=== PATIENT | female | born 1990 | race Caucasian/White ===

== ENCOUNTER 2017-08-25 10:06 | Emergency (ER) | payer SELFPAY ==
[~2017-08-25] VITALS: Ht 162.6 cm; Wt 65.0 kg
[~2017-08-25 10:06] MED LIST: Dilaudid PO; Levothroid,Synthroid PO; Motrin PO; NATALCARE RX1 TABLE1 PO; Natalcare Rx,Pramile PO; ORTHO TRI-CY1 TABLE1 PO; Percocet 5/325,Endoc PO; SYNTHROID125 MCG PO; Tums,OsCal PO; ~No Medications
[2017-08-25] MEDS ORDERED: AUGMENTIN875 MG PO (12:59)
[2017-08-25 13:20] VITALS: BP 128/80
== END 2017-08-25 13:20 | disposition home or self-care (01) ==
LOC: EME 10:06
DX: O99.511 Diseases of the respiratory system complicating pregnancy, first trimester (principal); H66.92 Otitis media, unspecified, left ear; J06.9 Acute upper respiratory infection, unspecified; Z3A.01 Less than 8 weeks gestation of pregnancy; E03.9 Hypothyroidism, unspecified
CPT/HCPCS: 99281; 99284

== ENCOUNTER 2017-10-25 14:43 | Inpatient (IN) | payer OTHER ==
[2017-10-25] VITALS (10 sets, daily range): BP systolic 109–136; BP diastolic 56–79
[~2017-10-25] VITALS: Ht 162.6 cm; Wt 66.0 kg
[~2017-10-25 14:43] MED LIST changes: +AUGMENTIN875 MG PO
[2017-10-25] MEDS ORDERED: PRENATAL TABLE1 EAC3 PO (15:58)
[2017-10-25 16:10] LABS: BASOPHIL (%) 0.9 % (0-1); BASOPHIL COUNT 0.1 K/uL (0-0.1); EOSINOPHIL (%) 0.6 % (0-5); EOSINOPHIL COUNT 0.1 K/uL (0-0.3); HEMATOCRIT 38.1 % (36.0-46.0); HEMOGLOBIN 13.4 G/DL (11.9-15.5); IMMATURE GRANULOCYTE (%) 0.3 % (0.0-0.7); LYMPHOCYTE (%) 20.5 % (15-42); LYMPHOCYTE COUNT 2.4 K/uL (1.0-2.8); MCH 31.2 PG (29.0-34.0); MCHC 35.2 G/DL (30.0-36.0); MCV 88.6 FL (83-99); MONOCYTE (%) 3.3 % (3-12); MONOCYTE COUNT 0.4 K/uL (0-0.8); NEUTROPHIL (%) 74.4 % (45-76); NEUTROPHIL COUNT 8.7 K/uL (1.8-6.4); PLATELET COUNT 253 K/uL (156-360); RBC DIS.WIDTH-CV 13.9 % (11.8-14.6); WHITE BLOOD COUNT 11.7 K/uL (4.1-10.2)
[2017-10-26] VITALS (15 sets, daily range): BP systolic 86–124; BP diastolic 46–71
[2017-10-26] MEDS ORDERED: IBUPROFEN800 MG PO (09:08)
[2017-10-26] MEDS ORDERED: DOCUSATE SODIU100 MG PO (09:08)
[2017-10-26 11:19] LABS: HEMOGLOBIN A1c (GLYCOHEMOGLOB) 4.8 % (Below 5.7)
== END 2017-10-26 11:34 | disposition home or self-care (01) | DRG 770 ==
LOC: LDRP-OP 14:43 → 2WEST 14:45
PROVIDERS: Advanced Practice Midwife; Obstetrics & Gynecology
PROC: 10D17ZZ Extraction of Products of Conception, Retained, Via Natural or Artificial Opening (ICD-10-PCS; principal; 2017-10-25)
DX: O02.1 Missed abortion (principal); O99.284 Endocrine, nutritional and metabolic diseases complicating childbirth; Z3A.16 16 weeks gestation of pregnancy; Z85.850 Personal history of malignant neoplasm of thyroid; E03.9 Hypothyroidism, unspecified
CPT/HCPCS: 83036; 84443; 85025; 86850; 86900; 86901; 88305; G0378; J0595; J7120

== ENCOUNTER 2018-03-16 12:55 | Emergency (ER) | payer OTHER ==
[~2018-03-16] VITALS: Ht 162.6 cm; Wt 71.5 kg
[~2018-03-16 12:55] MED LIST changes: +DOCUSATE SODIU100 MG PO; +IBUPROFEN800 MG PO; +PRENATAL TABLE1 EAC3 PO
[2018-03-16] MEDS ORDERED: LEVOTHYROXINE150 MCG PO (13:13)
[2018-03-16] MEDS ORDERED: ENOXAPARIN40 MG/0.4 SC (13:13)
[2018-03-16] MEDS ORDERED: ASPIRIN81 M2 PO (13:13)
[2018-03-16 13:15] VITALS: BP 112/79
[2018-03-16 13:53] LABS: HEMATOCRIT 36.9 % (36.0-46.0); HEMOGLOBIN 13.3 G/DL (11.9-15.5); MCH 32.8 PG (29.0-34.0); MCV 90.9 FL (83-99); PLATELET COUNT 239 K/uL (156-360); RBC DIS.WIDTH-CV 13.2 % (11.8-14.6); RED BLOOD COUNT 4.06 M/uL (3.80-5.20); WHITE BLOOD COUNT 11.2 K/uL (4.1-10.2)
[2018-03-16 14:01] LABS: ALBUMIN 3.9 g/dL (3.2-4.8); CHLORIDE 105 mEq/L (99-109); SODIUM 138 mEq/L (136-147)
[2018-03-16 14:03] LABS: GLUCOSE 86 mg/dL (70-99); TOTAL PROTEIN 6.7 g/dL (6.4-8.3)
[2018-03-16 14:05] LABS: TOTAL BILIRUBIN 0.8 mg/dL (0.0-1.0)
[2018-03-16 14:07] LABS: ALKALINE PHOSPHATASE 63 IU/L (3-129); CREATININE 0.7 mg/dL (0.6-1.3); GFR ESTIMATE (CALCULATED) > 59 mL/min/
[2018-03-16 14:08] LABS: UREA NITROGEN (BUN) 8 mg/dL (9-23)
[2018-03-16 14:09] LABS: AST (GOT) 15 IU/L (2-34)
[2018-03-16 14:10] LABS: ALT (GPT) 12 IU/L (3-49)
[2018-03-16 14:34] LABS: QUANTITATIVE HCG 32224.2 MIU/ML
== END 2018-03-16 16:07 | disposition home or self-care (01) ==
LOC: EME 12:55
PROVIDERS: Nurse Practitioner Family
DX: O99.89 Other specified diseases and conditions complicating pregnancy, childbirth and the puerperium (principal); M53.3 Sacrococcygeal disorders, not elsewhere classified; O99.112 Other diseases of the blood and blood-forming organs and certain disorders involving the immune mechanism complicating pregnancy, second trimester; D68.62 Lupus anticoagulant syndrome; W01.0XXA Fall on same level from slipping, tripping and stumbling without subsequent striking against object, initial encounter; O99.612 Diseases of the digestive system complicating pregnancy, second trimester; K21.9 Gastro-esophageal reflux disease without esophagitis; Z3A.16 16 weeks gestation of pregnancy; Z79.82 Long term (current) use of aspirin; Z85.850 Personal history of malignant neoplasm of thyroid; Z91.040 Latex allergy status
CPT/HCPCS: 76805; 80053; 81003; 84702; 85027; 99281; 99285

== ENCOUNTER 2018-04-07 17:42 | Outpatient (CLI) | payer OTHER ==
[~2018-04-07] VITALS: Ht 162.6 cm; Wt 74.4 kg
[~2018-04-07 17:42] MED LIST changes: +ASPIRIN81 M2 PO; +ENOXAPARIN40 MG/0.4 SC; +LEVOTHYROXINE150 MCG PO
[2018-04-07 20:05] VITALS: BP 109/62
[2018-04-07 21:29] LABS: BASOPHIL (%) 0.8 % (0-1); BASOPHIL COUNT 0.1 K/uL (0-0.1); EOSINOPHIL COUNT 0.1 K/uL (0-0.3); HEMATOCRIT 33.7 % (36.0-46.0); HEMOGLOBIN 11.7 G/DL (11.9-15.5); IMMATURE GRANULOCYTE (%) 0.6 % (0.0-0.7); LYMPHOCYTE (%) 20.3 % (15-42); LYMPHOCYTE COUNT 2.7 K/uL (1.0-2.8); MCH 32.1 PG (29.0-34.0); MCHC 34.7 G/DL (30.0-36.0); MCV 92.6 FL (83-99); MONOCYTE (%) 3.2 % (3-12); MONOCYTE COUNT 0.4 K/uL (0-0.8); NEUTROPHIL (%) 74.1 % (45-76); NEUTROPHIL COUNT 9.9 K/uL (1.8-6.4); PLATELET COUNT 225 K/uL (156-360); RBC DIS.WIDTH-CV 13.6 % (11.8-14.6); RBC DIS.WIDTH-SD 46.2 % (39-53); RED BLOOD COUNT 3.64 M/uL (3.80-5.20); WHITE BLOOD COUNT 13.4 K/uL (4.1-10.2)
[2018-04-07 22:18] VITALS: BP 109/63
== END 2018-04-07 22:40 | disposition home or self-care (01) ==
LOC: EME 17:42 → LDRP-OP 17:42 → 2WEST 19:41 → EDSTATUS 19:41 → 2WEST 19:54
PROVIDERS: Advanced Practice Midwife
DX: O26.892 Other specified pregnancy related conditions, second trimester (principal); R10.9 Unspecified abdominal pain; O99.112 Other diseases of the blood and blood-forming organs and certain disorders involving the immune mechanism complicating pregnancy, second trimester; D68.61 Antiphospholipid syndrome; O99.282 Endocrine, nutritional and metabolic diseases complicating pregnancy, second trimester; E03.9 Hypothyroidism, unspecified; Z79.01 Long term (current) use of anticoagulants; Z79.82 Long term (current) use of aspirin; Z3A.18 18 weeks gestation of pregnancy; V43.52XA Car driver injured in collision with other type car in traffic accident, initial encounter; Y92.410 Unspecified street and highway as the place of occurrence of the external cause
CPT/HCPCS: 76805; 85025; 99281; 99283; G0378